=== PATIENT | female | born 1965 | race Two or more races ===

== ENCOUNTER → 2016-07-28 | Outpatient (CLI) | payer OTHER ==
[2016-07-28 16:31] LABS: ABSOLUTE BASOPHILS # (AUTO) 0.1 10^3/uL (0.0-0.2); ABSOLUTE EOSINOPHILS # (AUTO) 0.2 10^3/uL (0.0-0.6); ABSOLUTE LYMPHOCYTES (AUTO) 2.1 10^3/uL (0.5-4.7); ABSOLUTE MONOCYTES (AUTO) 0.7 10^3/uL (0.1-1.4); ABSOLUTE NEUT (AUTO) 5.7 10^3/uL (1.7-8.2); BASOPHILS % (AUTO) 0.9 % (0-2); EOSINOPHILS % (AUTO) 2.6 % (0-6); HEMATOCRIT 42.1 % (36.0-47.0); HEMOGLOBIN 14.3 g/dL (12.0-15.5); HGB HCT DIFFERENCE 0.8; LYMPHOCYTES % (AUTO) 23.7 % (13-45); MEAN CORPUSCULAR HEMOGLOBIN 30.1 pg (27.0-33.4); MEAN CORPUSCULAR HGB CONC 34.1 g/dL (32.0-36.0); MEAN CORPUSCULAR VOLUME 88 fl (80-97); MONOCYTES % (AUTO) 8.3 % (3-13); RED BLOOD COUNT 4.77 10^6/uL (3.72-5.28); RED CELL DISTRIBUTION WIDTH 13.3 % (11.5-14.0); SEGMENTED NEUTROPHILS % (AUTO) 64.5 % (42-78); WHITE BLOOD COUNT 8.9 10^3/uL (4.0-10.5)
[2016-07-28 16:49] LABS: ALANINE AMINOTRANSFERASE 41 U/L (9-52); ALBUMIN 4.5 g/dL (3.5-5.0); ALKALINE PHOSPHATASE 75 U/L (38-126); ANION GAP 13 (5-19); ASPARTATE AMINO TRANSFERASE 33 U/L (14-36); BILIRUBIN,DIRECT 0.3 mg/dL (0.0-0.4); BILIRUBIN,TOTAL 0.5 mg/dL (0.2-1.3); BLOOD UREA NITROGEN 17 mg/dL (7-20); CALCIUM 10.1 mg/dL (8.4-10.2); CARBON DIOXIDE 27 mmol/L (22-30); CHLORIDE 102 mmol/L (98-107); CREATININE RESULT 0.61 mg/dL (0.52-1.25); GLUCOSE 157 mg/dL (75-110); IRON 56.8 ug/dL (37-170); POTASSIUM 3.2 mmol/L (3.6-5.0); SODIUM 142.4 mmol/L (137-145); TOTAL PROTEIN 7.7 g/dL (6.3-8.2)
[2016-07-28 17:06] LABS: FREE T3 3.75 pg/mL (2.77-5.27)
[2016-07-28 17:20] LABS: THYROID STIMULATING HORMONE 0.32 uIU/mL (0.47-4.68)
== END ==
LOC: LAB 15:58
PROVIDERS: ATTEND Specialist
DX: R10.9 Unspecified abdominal pain (principal)
CPT/HCPCS: 36415; 80053; 83540; 84439; 84443; 84481; 85025

== ENCOUNTER 2016-08-04 08:22 | Day surgery (SDC) | payer OTHER ==
--- NOTE | 2016-08-03 11:45 | HISTORY AND PHYSICAL E ---
History and Physical NAME: AUBREE GREGG : 1965 AGE: 50Y ADMITTED: 08/04/2016 ROOM: A 50-year-old female referred to us by ANNIE for abdominal pain right side. The patient does have constipation. SOCIAL HISTORY: . Does not smoke. Drinks rarely. PAST SURGICAL HISTORY: 1. Ventral hernia. 2. Hysterectomy. 3. Ectopic once. 4. Right carpal tunnel. REVIEW OF SYSTEMS: HEAD, EYES, EARS, NOSE AND THROAT: Eyeglasses. RESPIRATORY: CPAP, sleep apnea. CARDIAC: Hypertension. Cardiomegaly. ENDOCRINE: Negative. GASTROINTESTINAL: Abdominal pain, constipation. ONCOLOGY/HEMATOLOGY: Anemia. MUSCULOSKELETAL: Back pain, L3 and L5, had accident. FAMILY HISTORY: Father had liver disease. He used to drink alcohol. Mom has dementia. PHYSICAL EXAMINATION: GENERAL: 50. VITAL SIGNS: Blood pressure is 120/80, pulse 50, respirations 18, temp is 98. HEAD, EYES, EARS, NOSE AND THROAT: Normal. NECK: Supple. LUNGS: Clear. ABDOMEN: Soft. NEUROLOGICAL: Exam negative. CONCLUSIONS: Abdominal pain. PLAN: Gallbladder ultrasound, right kidney ultrasound, colon exam, colon screening, colonoscopy. MEDICATIONS: 1. Hydrochlorothiazide. 2. Amlodipine. 3. Tenoretic. 4. Robaxin. DICTATING PHYSICIAN: ANNA MARIE DUFFY M.D. 1221M 1649 [facility] [id number] ID: [id number] JOB#: [id number] ACCT: [id number] cc:[facility], ANNA MARIE DUFFY M.D. [facility],
[~2016-08-04 08:22] MED LIST: EPINEPHRINE INJ 1 MG/10 ML DISP.SYRIN ONE; FENTANYL CITRATE INJ/PF 100 MCG/2 ML AMPUL ONE; FLUMAZENIL INJ 0.5 MG/5 ML VIAL IV ONE; GLUCAGON,HUMAN RECOMB 1 MG INJ ONE; GLYCOPYRROLATE INJ 0.4 MG/2 ML VIAL ONE; LIDOCAINE 2% JELLY 30 ML TUBE ONE; MIDAZOLAM 2 MG/2 ML INJ ONE; NALOXONE HCL INJ/PF 0.4 MG/1 ML SDV ONE; ONDANSETRON HCL INJ/PF 4 MG/2 ML SDV ONE
[2016-08-04] MEDS: MIDAZOLAM 2 MG/2 ML INJ ONE ×3 (09:38→09:44)
[2016-08-04 11:15] VITALS: BP 117/70
[2016-08-04 11:21] LABS: ABSOLUTE EOSINOPHILS # (AUTO) 0.1 10^3/uL (0.0-0.6); ABSOLUTE LYMPHOCYTES (AUTO) 1.7 10^3/uL (0.5-4.7); ABSOLUTE MONOCYTES (AUTO) 0.5 10^3/uL (0.1-1.4); ABSOLUTE NEUT (AUTO) 4.7 10^3/uL (1.7-8.2); BASOPHILS % (AUTO) 0.6 % (0-2); EOSINOPHILS % (AUTO) 1.8 % (0-6); HEMATOCRIT 42.7 % (36.0-47.0); HEMOGLOBIN 14.4 g/dL (12.0-15.5); HGB HCT DIFFERENCE 0.5; LYMPHOCYTES % (AUTO) 24.6 % (13-45); MEAN CORPUSCULAR HEMOGLOBIN 30.3 pg (27.0-33.4); MEAN CORPUSCULAR HGB CONC 33.6 g/dL (32.0-36.0); MEAN CORPUSCULAR VOLUME 90 fl (80-97); MONOCYTES % (AUTO) 6.8 % (3-13); RED BLOOD COUNT 4.74 10^6/uL (3.72-5.28); RED CELL DISTRIBUTION WIDTH 13.3 % (11.5-14.0); SEGMENTED NEUTROPHILS % (AUTO) 66.2 % (42-78); WHITE BLOOD COUNT 7.1 10^3/uL (4.0-10.5)
[2016-08-04 11:47] LABS: ALANINE AMINOTRANSFERASE 38 U/L (9-52); ALBUMIN 4.4 g/dL (3.5-5.0); ALKALINE PHOSPHATASE 57 U/L (38-126); AMYLASE 30 U/L (30-110); ANION GAP 12 (5-19); ASPARTATE AMINO TRANSFERASE 35 U/L (14-36); BILIRUBIN,DIRECT 0.2 mg/dL (0.0-0.4); BILIRUBIN,TOTAL 1.1 mg/dL (0.2-1.3); BLOOD UREA NITROGEN 13 mg/dL (7-20); CALCIUM 9.5 mg/dL (8.4-10.2); CARBON DIOXIDE 31 mmol/L (22-30); CHLORIDE 95 mmol/L (98-107); CREATININE RESULT 0.65 mg/dL (0.52-1.25); GLUCOSE 166 mg/dL (75-110); LIPASE 94.9 U/L (23-300); POTASSIUM 3.6 mmol/L (3.6-5.0); TOTAL PROTEIN 7.7 g/dL (6.3-8.2)
[2016-08-04 12:26] LABS: CARCINOEMBRYONIC ANTIGEN < 0.3 ng/mL (<3.0)
--- NOTE | 2016-08-05 11:01 | OPERATIVE REPORT E ---
Operative Report NAME: AUBREE GREGG : 1965 AGE: 50Y DATE OF SURGERY: ROOM: ADDENDUM TO COLONOSCOPY: The patient's preop colon screen was stopped 3 mm, sigmoid poly. DISCHARGE PLAN: Awaiting biopsy consideration, followup colonoscopy after 2 years, awaiting biopsy results. DICTATING PHYSICIAN: ANNA MARIE DUFFY M.D. [id number] 1036 PHY#: [id number] ID: [id number] JOB#: [id number] ACCT: [id number] cc:ANNA MARIE DUFFY M.D. >
--- NOTE | 2016-08-05 11:01 | OPERATIVE REPORT E ---
Operative Report NAME: AUBREE GREGG : 1965 AGE: 50Y DATE OF SURGERY: 08/04/2016 ROOM: PREOPERATIVE DIAGNOSIS: Colon screening. POSTOPERATIVE DIAGNOSIS: A small 2-3 mm polyp rectosigmoid junction. PROCEDURE: Colonoscopy. SURGEON: ANNA MARIE DUFFY M.D. ANESTHESIA: Versed 4 and Fentanyl 100. TISSUE REMOVED OR ALTERED: Biopsy of polyp in rectosigmoid. DESCRIPTION OF PROCEDURE: Rectal exam shows diminutive polyp, small to biopsy, 2 mm. Rectosigmoid 3 mm polyp, biopsy obtained. Descending transverse colon difficult to intubate, normal. Ascending colon normal. Cecum normal. Scope withdrawn from cecum, ascending, transverse, descending, sigmoid all the way to the rectum. CONCLUSION: Small 3 mm polyp in rectosigmoid junction. PLAN: Awaiting biopsy results. Patient was told she has enlarged gallbladder. Lab studies. DICTATING PHYSICIAN: ANNA MARIE DUFFY M.D. 1211M 1026 Y#: [id number] ID: [id number] JOB#: [id number] ACCT: [id number] cc:[facility], ANNA MARIE DUFFY M.D. >
--- NOTE | 2016-08-05 11:04 | DISCHARGE SUMMARY E ---
Discharge Summary NAME: AUBREE GREGG : 1965 AGE: 50Y ADMITTED: 08/04/2016 DISCHARGED: 08/04/2016 HISTORY: A 50-year-old female for colon screening. She did have ventral hernia surgery. MEDICATIONS: 1. Albuterol. 2. Blood pressure medication. 3. Hydrochlorothiazide. 4. Losartan. Today's colonoscopy was successful to the cecum. No evidence of malignancy. Benign-looking polyp rectosigmoid junction. DISCHARGE PLAN: Soft diet. Hold aspirin. Lab studies. Follow up regarding gallbladder ultrasound. Patient may need to have biliary scan with ejection. FINAL DIAGNOSIS: Polyp rectosigmoid junction. DICTATING PHYSICIAN: ANNA MARIE DUFFY M.D. 1654M 1030 PHY#: [id number] ID: [id number] JOB#: [id number] ACCT: [id number] cc:[facility], ANNA MARIE DUFFY M.D. >
== END 2016-08-04 11:25 | disposition home or self-care (01) ==
LOC: END 08:22
PROVIDERS: ATTEND Specialist
PROC: 0DBP8ZX Excision of Rectum, Via Natural or Artificial Opening Endoscopic, Diagnostic (ICD-10-PCS; 2016-08-04)
PROC: 0DBN8ZX Excision of Sigmoid Colon, Via Natural or Artificial Opening Endoscopic, Diagnostic (ICD-10-PCS; principal; 2016-08-04 09:00)
DX: K63.5 Polyp of colon (principal); D64.9 Anemia, unspecified; I10 Essential (primary) hypertension; I51.7 Cardiomegaly; G47.30 Sleep apnea, unspecified; Z79.51 Long term (current) use of inhaled steroids; Z79.899 Other long term (current) drug therapy
CPT/HCPCS: 45380; 36415; 86304; 82150; 82378; 83690; 85025; 80053; 88305 ×2; J2250; J3010; J0171; J1610; J2310; J2405; J3490

== ENCOUNTER 2016-08-18 08:23 | Day surgery (SDC) | payer OTHER ==
--- NOTE | 2016-08-12 09:58 | HISTORY AND PHYSICAL E ---
History and Physical NAME: AUBREE GREGG : 1965 AGE: 50Y ADMITTED: 08/18/2016 ROOM: HISTORY: The patient presented to us from [facility] regarding abdominal pain radiating to her back. The patient underwent a colonoscopy showing sigmoid polyp, hyperplastic. Persistent abdominal pain. PAST MEDICAL AND SURGICAL HISTORY: 1. Ventral hernia. 2. Hysterectomy. 3. Ectopic . MEDICATIONS: She takes: 1. Robaxin. 2. Tenoretic. ALLERGIES: The patient has no mentioned allergies. SOCIAL HISTORY: She is , does not smoke, drinks rarely. FAMILY HISTORY: Father had liver disease. Mom has dementia. REVIEW OF SYSTEMS: CARDIAC: Enlarged heart, hypertension. RESPIRATORY: Sleep apnea, CPAP. HEAD, EYES, EARS, NOSE, THROAT: Eyeglasses. GASTROINTESTINAL: Abdominal pain, anemia. MUSCULOSKELETAL: Back pain. Accident. PHYSICAL EXAMINATION: VITAL SIGNS: Blood pressure 120/80, pulse 60, respirations are 18, temp is 98. HEAD, EYES, EARS, NOSE, THROAT: Normal. ABDOMEN: Soft. NEUROLOGIC: Exam negative. CONCLUSION: 1. Reflux. 2. Abdominal pain. 3. Status post colonoscopy, no evidence of malignancy, benign-looking polyp. PLAN: Upper endoscopy on 08/18. DICTATING PHYSICIAN: ANNA MARIE DUFFY M.D. 1819M 1550 Y#: [id number] ID: [id number] JOB#: [id number] ACCT: [id number] cc:[facility], ANNA MARIE DUFFY M.D. >
[~2016-08-18 08:23] MED LIST changes: -FENTANYL CITRATE INJ/PF 100 MCG/2 ML AMPUL ONE; -GLUCAGON,HUMAN RECOMB 1 MG INJ ONE; -LIDOCAINE 2% JELLY 30 ML TUBE ONE; -MIDAZOLAM 2 MG/2 ML INJ ONE
[2016-08-18] MEDS: MIDAZOLAM 2 MG/2 ML INJ ONE ×2 (09:00→09:06)
[2016-08-18] MEDS: FENTANYL CITRATE INJ/PF 100 MCG/2 ML AMPUL ONE ×2 (09:02→09:10)
[2016-08-18 10:15] LABS: ABSOLUTE EOSINOPHILS # (AUTO) 0.2 10^3/uL (0.0-0.6); ABSOLUTE LYMPHOCYTES (AUTO) 1.9 10^3/uL (0.5-4.7); ABSOLUTE MONOCYTES (AUTO) 0.7 10^3/uL (0.1-1.4); ABSOLUTE NEUT (AUTO) 6.3 10^3/uL (1.7-8.2); BASOPHILS % (AUTO) 0.5 % (0-2); EOSINOPHILS % (AUTO) 2.2 % (0-6); HEMATOCRIT 37.7 % (36.0-47.0); HEMOGLOBIN 12.7 g/dL (12.0-15.5); HGB HCT DIFFERENCE 0.4; LYMPHOCYTES % (AUTO) 20.7 % (13-45); MEAN CORPUSCULAR HEMOGLOBIN 30.2 pg (27.0-33.4); MEAN CORPUSCULAR HGB CONC 33.8 g/dL (32.0-36.0); MEAN CORPUSCULAR VOLUME 90 fl (80-97); RED BLOOD COUNT 4.21 10^6/uL (3.72-5.28); RED CELL DISTRIBUTION WIDTH 13.5 % (11.5-14.0); SEGMENTED NEUTROPHILS % (AUTO) 68.6 % (42-78); WHITE BLOOD COUNT 9.2 10^3/uL (4.0-10.5)
[2016-08-18 10:27] VITALS: BP 99/63
[2016-08-18 10:31] LABS: LIPASE 77.9 U/L (23-300)
[2016-08-18 10:32] LABS: AMYLASE < 30 U/L (30-110)
--- NOTE | 2016-08-18 11:07 | OPERATIVE REPORT E ---
Operative Report NAME: AUBREE GREGG : 1965 AGE: 50Y DATE OF SURGERY: 08/18/2016 ROOM: HISTORY: Abdominal pain; had recent colonoscopy. She does have abdominal pain; radiates to the back. PREOPERATIVE DIAGNOSIS: ABDOMINAL PAIN; ETIOLOGY UNDETERMINED. OPERATION: 1. Esophagoscopy. 2. Gastroscopy. 3. Duodenoscopy. SURGEON: ANNA MARIE DUFFY M.D. ANESTHESIA: Versed 3, fentanyl 50. TISSUE REMOVED OR ALTERED: Gastric biopsy, H. pylori. PROCEDURE DESCRIPTION: Baby scope passed under guided vision; no difficulties. ESOPHAGOSCOPY: Junction at 35 cm. Mild esophagitis. GASTROSCOPY: No ulcers. Mild gastritis. DUODENOSCOPY: Mild duodenitis. CONCLUSION: 1. ESOPHAGITIS. 2. GASTRITIS. 3. DUODENITIS. 4. NO ULCERS. 4. NO BLEEDING. DISPOSITION: Patient tolerated the procedure well. Discharged to her room in stable condition. DICTATING PHYSICIAN: ANNA MARIE DUFFY M.D. 1265M 0949 [facility]#: [id number] ID: [id number] JOB#: [id number] ACCT: [id number] cc:[facility], ANNA MARIE DUFFY M.D. >
--- NOTE | 2016-08-18 11:08 | DISCHARGE SUMMARY E ---
Discharge Summary NAME: AUBREE GREGG : 1965 AGE: 50Y ADMITTED: 08/18/2016 DISCHARGED: 08/18/2016 PROCEDURE: EGD and biopsy. HISTORY: Patient is 50 and underwent upper scope today showing no ulcers. She did have esophagitis, gastritis, duodenitis. Recent colonoscopy was okay. Patient presented for upper scope regarding persistent abdominal pain. She does have ventral hernia and hysterectomy. She takes Robaxin for muscle relaxant. The patient's upper scope today shows no ulcers and no bleeding. She does have abdominal pain and anemia. DISCHARGE PLAN: 1. Awaiting biopsy results. 2. Lab studies. 3. Patient to see us in the office in the next few days. DICTATING PHYSICIAN: ANNA MARIE DUFFY M.D. 1209M 0935 PHY#: [id number] ID: [id number] JOB#: [id number] ACCT: [id number] cc:ANNA MARIE DUFFY M.D. >
== END 2016-08-18 10:25 | disposition home or self-care (01) ==
LOC: END 08:23
PROVIDERS: ATTEND Specialist
PROC: 0DB68ZX Excision of Stomach, Via Natural or Artificial Opening Endoscopic, Diagnostic (ICD-10-PCS; principal; 2016-08-18 09:00)
DX: K29.50 Unspecified chronic gastritis without bleeding (principal); K21.0 Gastro-esophageal reflux disease with esophagitis; K29.80 Duodenitis without bleeding; I10 Essential (primary) hypertension; D64.9 Anemia, unspecified; G47.30 Sleep apnea, unspecified; I51.7 Cardiomegaly; Z79.899 Other long term (current) drug therapy
CPT/HCPCS: 43239; 36415; 82150; 83690; 85025; 88342 ×2; 88305 ×2; J2250; J3010; J2405; J0171; J2310; J3490

== ENCOUNTER → 2016-09-10 | Outpatient (CLI) | payer OTHER ==
--- NOTE | 2016-09-10 16:43 | RADIOLOGY REPORT (SQ) ---
EXAM DESCRIPTION: NM HIDA SCAN WITH CCK COMPLETED DATE/TIME: 09/10/2016 4:01 pm REASON FOR STUDY: UNSPEC ABD PAIN (R10.9) R19.01 RIGHT UPPER QUADRANT ABDOMINAL SWELLING, MASS AND LUM COMPARISON: None. RADIONUCLIDE AND DOSE: DOSAGE RADIONUCLIDE: 5.42 millicuries Tc99m Mebrofenin. DOSAGE CCK: 2.0 micrograms. DOSAGE MORPHINE: Not required. The route of agent administration: Intravenous TECHNIQUE: Serial imaging right upper quadrant up to 60 minutes following injection of radionuclide. CCK injected after gallbladder visualized. LIMITATIONS: None. FINDINGS: LIVER: Normal visualization without areas of photopenia. INTRAHEPATIC BILE DUCTS: Normal size and no delay in visualization. COMMON BILE DUCT: Normal without dilatation. GALLBLADDER: Normal visualization. Calculated ejection fraction of 56%. Normal range is greater th an 35%. PHYSICAL RESPONSE: Patients presenting complaint was not reproduced. OTHER: No other significant finding. IMPRESSION: NORMAL STUDY WITHOUT CYSTIC OR COMMON DUCT OBSTRUCTION. NORMAL GALLBLADDER EJECTION FRA CTION. NO EVIDENCE FOR BILIARY DYSKINESIS. TECHNICAL DOCUMENTATION: JOB ID: [id number]- All Rights Reserved
== END ==
LOC: RAD 12:36
PROVIDERS: ATTEND Specialist
DX: R10.9 Unspecified abdominal pain (principal)
CPT/HCPCS: 78227; A9537; Q9969; J2805